=== PATIENT | male | born 1990 | race Caucasian/White ===

== ENCOUNTER 2020-04-23 19:48 | Emergency (ER) | payer SELFPAY ==
--- NOTE | 2020-04-23 20:12 | ED.PDOC ---
History of Present Illness - General Stated Complaint: hearing voices, not taking his medications Time Seen by Provider: 04/23/20 19:59 Source: patient Exam Limitations: no limitations - History of Present Illness Initial Comments: IS CURRENTLY AN MR PT FOR SCHIZOPHRENIA AND DEPRESSION. HE HAS BEEN HEARING VOICES SINCE MAR, 2019, (SINCE HE HAS BEEN "MEDITATING AND ASKING FOR DIVINE RIGHTS AND HERITAGE") THAT ARE TELLING HIM SEVERAL DISJOINTED IDEAS. THEY ARE TELLING HIM HE IS A HUMAN CREATURE CREATOR GOD AND HE IS SUPPOSED TO GO TO [facility] TO THE CAVES AND FIND CRYSTALS. THEY ARE TELLING HIM HE HAS WORMS IN HIS HEAD AND INTESTINES. HE SAYS THEY ARE NOT AUDITORY HALLUCINATIONS BUT ARE CREATURES APPROXIMATELY 2 FEET ABOVE HIM THAT ARE TALKING TO HIM AND FEEL THREATENED BY HIM AT THE SAME TIME BECAUSE HE IS BECOMING AND ALIEN HUMANOID BEING AND MIGHT HURT THEM. HE IS SCHEDULED TO GET LABS TOMORROW FOR [facility]. CURRENTLY NOT TAKING ANY MEDICATIONS. DENIES HOMICIDAL IDEATIONS. I ASKED IF HE HAS ANY PLANS TO HURT HIMSELF. HE SATES HE IS GIVING UP ON LIFE BECAUSE HE IS HEARING VOICES INCESSANTLY. HE DOES NOT HAVE A PLAN TO TAKE HIS LIFE. Timing/Duration: constant Severity: severe Associated Symptoms: anxiety, suicidal ideation Review of Systems - Review of Systems Constitutional: Denies: chills, fever EENTM: Denies: eye pain, ear pain, nose pain Respiratory: Denies: cough, short of breath Cardiology: Denies: chest pain, palpitations Gastrointestinal/Abdominal: Denies: abdominal pain, nausea Genitourinary: Denies: dysuria, frequency Musculoskeletal: Denies: back pain, neck pain Skin: Denies: lesions, rash Neurological: States: anxiety, depressed. Denies: headache, tremors, weakness Endocrine: Denies: flushing, intolerance to cold, intolerance to heat Hematologic/Lymphatic: Denies: easy bleeding, easy bruising All other Systems: Reviewed and Negative Family Medical History - Family History Father Family History: Unknown Physical Exam - Physical Exam General Appearance: Alert, Well Groomed Eyes, Ears, Nose, Throat Exam: PERRL/EOMI, normal ENT inspection, TMs normal, pharynx normal Neck: non-tender, full range of motion, supple Respiratory: lungs clear, normal breath sounds, no respiratory distress Cardiovascular/Chest: normal peripheral pulses, no murmur Peripheral Pulses: radial,right: 2+, radial,left: 2+ Gastrointestinal/Abdominal: normal bowel sounds, non tender, soft, no organomegaly, no pulsatile mass Extremities Exam: normal range of motion, no evidence of injury Neurological: alert, calm - CALMLY RELAYS TO ME WHAT THE VOICES ARE TELLING HIM. HE CONTINUES EXPLAINING NON-STOP. 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 ORDERING UDS TO ENSURE IT IS NOT DRUG-INDUCED HALLUCINATIONS (PCP, MARIJUANA, ETC) PT DOES NOT HAVE A PLAN TO END HIS LIFE BUT HE HAS FEELINGS OF GIVING UP ON LIFE, THUS WE WILL CONSULT [facility] AFTER HE IS MEDICALLY CLEARED. 04/23/20 22:26 UDS, CBC, CMP NEG. UA TRACE BLOOD BUT NO IFXN. [facility] TALKED WITH THE PATIENT. HE DOES NOT HAVE ANY PLANS TO TAKE HIS LIFE. THEY INFORMED HIM HE DOES HAVE MEDS AVAILABLE AT THE [facility] OF WHICH HE HAD BEEN UNAWARE. THE PT PROMISED [facility] HE HILL NOT HURT HIMSELF AND WILL SEE THEM IN THE CLINIC TOMORROW MORNING AT 8 AM. 04/23/20 22:29 I ALSO TALKED WITH PT AND CONFIRMED THE ABOVE. HE SAID HE WILL GO TO 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 PT IS MEDICAL-LEGALLY ALLOWED TO LEAVE AND SAFE TO LEAVE SINCE HE DOES NOT PLAN TO KILL HIMSELF, NOR DID HE THREATEN TO DO SO. Departure - Departure Clinical Impression: Psychiatric symptoms, Hearing voices Disposition: Discharge to Home or Self Care Condition: Good Departure Forms: ED Discharge - Pt. Copy, Patient Portal Self Enrollment Instructions: DI for Suicidal Ideation-Adult Diet: resume usual diet Activity: increase activity as tolerated Additional Instructions: In the morning, please bulk picker your prescriptions from [facility] and take to your [facility] appointment tomorrow. Hang in there. We care about you.
[2020-04-23 22:02] VITALS: BP 117/79; O2SAT 98
[2020-04-23 22:27] VITALS: TEMP 97.4
== END 2020-04-23 22:26 | disposition home or self-care (01) ==
LOC: ER 19:48
DX: R44.0 Auditory hallucinations (principal); F20.9 Schizophrenia, unspecified

== ENCOUNTER 2020-06-19 14:05 | Emergency (ER) | payer SELFPAY ==
--- NOTE | 2020-06-19 14:28 | ED.PDOC ---
History of Present Illness - General Chief Complaint: Behavioral / Psych Stated Complaint: worms in brain, voices, visual disturbances Time Seen by Provider: 06/19/20 14:14 - History of Present Illness Initial Comments: 30 M +pmh presents to ED c/o exacerbation of chronic auditory, visual, and tactile hallucinations. Pt believes he has worms in his head and he has been talking with "beings of higher intellect". Pt's medical case manager is already coordinating placement at [facility]. + h/o similar s'xs. He has been out of his medications for 2 weeks. Denies SI/HI, CP, SOB, n/v/d, f/c, cough, headache. Pt denies any other complaints at this time. Allergies/Adverse Reactions: Allergies NO KNOWN ALLERGY Allergy (Verified 06/19/20 14:26) Home Medications: Ambulatory Orders Depakote PO DAILY 06/19/20 Haldol PO DAILY 06/19/20 Review of Systems - Review of Systems Constitutional: Denies: chills, fever EENTM: Denies: blurred vision, ear discharge, throat pain Respiratory: Denies: cough, short of breath Cardiology: Denies: chest pain Gastrointestinal/Abdominal: Denies: abdominal pain, nausea, vomiting Genitourinary: Denies: dysuria, frequency Musculoskeletal: Denies: joint pain, muscle pain Skin: Denies: change in color, lesions, rash Neurological: States: anxiety, other - + auditory, visual, and tactile hallucinations. Denies: headache, numbness, tingling, weakness Past Medical History (General) - Patient Medical History Hx Seizures: No Hx Stroke: No Hx Dementia: No Hx Asthma: No Hx of COPD: No Hx Cardiac Disorders: No Hx Congestive Heart Failure: No Hx Pacemaker: No Hx Hypertension: No Hx Thyroid Disease: No Hx Diabetes: No Hx Gastroesophageal Reflux: No Hx Renal Disease: No Hx Cancer: No Hx of HIV: No Hx Hepatitis C: No Hx MRSA: No - Vaccination History Hx Tetanus, Diphtheria Vaccination: Yes Hx Influenza Vaccination: No Hx Pneumococcal Vaccination: No - Social History Hx Tobacco Use: Yes Hx Chewing Tobacco Use: No Hx Alcohol Use: No Hx Substance Use Treatment: No Hx Depression: Yes - MR patient Hx Physical Abuse: No Hx Emotional Abuse: No Hx Suspected Abuse: No Family Medical History - Family History Father Family History: Unknown Physical Exam - Physical Exam General Appearance: Alert, Other - Mildly distressed due to psychosis, pleasant and cooperative, Non-toxic appearing Eyes, Ears, Nose, Throat Exam: PERRL/EOMI, normal ENT inspection, TMs normal Neck: full range of motion, supple, normal inspection Respiratory: lungs clear, normal breath sounds, no respiratory distress, no accessory muscle use Cardiovascular/Chest: normal peripheral pulses, regular rate, rhythm, no edema, no gallop, no JVD, no murmur Gastrointestinal/Abdominal: normal bowel sounds, non tender, soft Extremities Exam: no evidence of injury, no edema Neurological: alert, normal mood/affect, calm, hearing care professional II-XII nml as tested, oriented x 3 Appearance: appropriate appearance, neat Behavior/Eye Contact/Speech: good eye contact - intermittent but has good eye contact with every question throughout examination Thoughts/Hallucinations: auditory hallucinations, paranoid, tactile halluc inations, visual hallucinations Skin Exam: normal color, warm/dry, other - no rash Progress - Progress Progress: Presents for acute on chronic psychosis with auditory/visual/tactile hallucinations and requesting help. I will perform imaging, labs, provide appropriate pharmacotherapy, and continue to monitor/reassess. Dispo will depend on lab results, imaging results, and overall course in ED; however, transfer to inpatient psychiatric center is expected. Pt's medical case manager is already working on placement. 15:33 Rechecked pt. NAD, VSS and improved. Pt orally rehydrating and PO tolerant. Pt is not a direct threat to himself or others but does warrant inpatient psychiatric care. I have discussed radiology results, lab results, my clinical impression, and diagnosis. I have also discussed plan for discharge from ED and transfer to inpatient psychiatric facility with plan for f/u, education. ED return precautions provided. Pt voices understanding, agrees with plan, and all questions answered. 16:46 I have consulted with Dr. Lorenzo at [facility]. He accepts pt for transfer. Joe Hamilton DO Emergency Medicine Physician [id number] - Results/Orders Results/Orders: PROVIDED CLINICAL HISTORY/REASON FOR EXAM: 06/19/20 15:33 Miscellaneous Nursing Order .ONCE Laboratory Results - last 24 hr 06/19/20 06/19/20 06/19/20 14:41 14:41 14:41 WBC 8.1 RBC 5.11 Hgb 16.1 Hct 46.1 MCV 90.2 MCH 31.5 H MCHC 35.0 RDW 12.5 Plt Count 238 MPV 7.3 L Absolute Neuts (auto) 5.70 Absolute Lymphs (auto) 1.60 Absolute Monos (auto) 0.70 Absolute Eos (auto) 0.10 Absolute Basos (auto) 0.10 Neutrophils % 70.7 Lymphocytes % 19.7 L Monocytes % 8.1 Eosinophils % 0.6 L Basophils % 0.9 Sodium 139 Potassium 4.2 Chloride 104 Carbon Dioxide 26 Anion Gap 13.2 BUN 13 Creatinine 1.40 H BUN/Creatinine Ratio 9.3 L Random Glucose 84 Serum Osmolality 276.8 Calcium 9.2 Total Bilirubin 0.6 AST 14 ALT 12 Alkaline Phosphatase 70 Serum Total Protein 7.2 Albumin 4.4 Globulin 2.8 Albumin/Globulin Ratio 1.6 Urine Color Urine Appearance Urine pH Ur Specific Sargent Urine Protein Urine Glucose (UA) Urine Ketones Urine Blood Urine Nitrite Urine Bilirubin Urine Urobilinogen Ur Leukocyte Esterase Urine RBC Urine WBC Ur Epithelial Cells Urine Bacteria Salicylates < 4.0 Urine Opiates Screen Acetaminophen < 10.0 L Urine Barbiturates Ur Phencyclidine Scrn U Amphetamin/Meth Scrn U Benzodiazepines Scrn U Cocaine Metab Screen U Cannabinoids Screen Ethyl Alcohol < 5.40 06/19/20 06/19/20 15:10 15:10 WBC RBC Hgb Hct MCV MCH MCHC RDW Plt Count MPV Absolute Neuts (auto) Absolute Lymphs (auto) Absolute Monos (auto) Absolute Eos (auto) Absolute Basos (auto) Neutrophils % Lymphocytes % Monocytes % Eosinophils % Basophils % Sodium Potassium Chloride Carbon Dioxide Anion Gap BUN Creatinine BUN/Creatinine Ratio Random Glucose Serum Osmolality Calcium Total Bilirubin AST ALT Alkaline Phosphatase Serum Total Protein Albumin Globulin Albumin/Globulin Ratio Urine Color Yellow Urine Appearance Clear Urine pH 6.5 Ur Specific Sargent 1.020 Urine Protein Negative Urine Glucose (UA) Negative Urine Ketones Negative Urine Blood Trace-lysed H Urine Nitrite Negative Urine Bilirubin Negative Urine Urobilinogen 0.2 Ur Leukocyte Esterase Negative Urine RBC 0-1 Urine WBC 0 Ur Epithelial Cells 0 Urine Bacteria 0 Salicylates Urine Opiates Screen Negative Acetaminophen Urine Barbiturates Negative Ur Phencyclidine Scrn Negative U Amphetamin/Meth Scrn Negative U Benzodiazepines Scrn Negative U Cocaine Metab Screen Negative U Cannabinoids Screen Negative Ethyl Alcohol hallucinations TECHNIQUE: Volumetric CT data of the brain was obtained without intravenous contrast. This exam was performed according to our departmental dose-optimization program, which includes automated exposure control, adjustment of the mA and/or kV according to patient size and/or use of iterative reconstruction technique. COMPARISON: None available. FINDINGS: The ventricles and sulci are normal, without hydrocephalus or significant atrophy. Septum pellucidum and third ventricle are midline. No acute infarction is evident by CT. No acute hemorrhage is present. No mass or mass effect is present. The calvaria and soft tissues are unremarkable. The visualized p aranasal sinuses are unremarkable. IMPRESSION: No acute intracranial abnormalities. Electronically signed by: Viral Aguilar MD 06/19/2020 3:02 PM CDT Vital Signs - 24 hr 06/19/20 14:27 Temperature 98.6 F Pulse Rate [ 104 H Left Radial] Respiratory 18 Rate Blood Pressure 144/90 [Left Arm] O2 Sat by Pulse 96 Oximetry Departure - Departure Clinical Impression: JUVENCIO (acute kidney injury), Acute psychosis, Visual hallucinations, Auditory hallucinations, Tactile hallucinations Time of Disposition: 15:29 Disposition: Transfer to [facility] Hospital Condition: Good Departure Forms: ED Discharge - Pt. Copy, Patient Portal Self Enrollment Instructions: DI for Psychosis, Acute Kidney Injury (DC), Schizophrenia (DC), Oral Rehydration Therapy Diet: resume usual diet Activity: increase activity as tolerated Referrals: Your, Primary Care Physician [Other] - 1-2 Weeks (Follow up in 1 week to repeat BMP and monitor renal function.) Home Medications: Ambulatory Orders Depakote PO DAILY 06/19/20 Haldol PO DAILY 06/19/20
--- NOTE | 2020-06-19 15:03 | CT ---
PROVIDED CLINICAL HISTORY/REASON FOR EXAM: hallucinations TECHNIQUE: Volumetric CT data of the brain was obtained without intravenous contrast. This exam was performed according to our departmental dose-optimization program, which includes automated exposure control, adjustment of the mA and/or kV according to patient size and/or use of iterative reconstruction technique. COMPARISON: None available. FINDINGS: The ventricles and sulci are normal, without hydrocephalus or significant atrophy. Septum pellucidum and third ventricle are midline. No acute infarction is evident by CT. No acute hemorrhage is present. No mass or mass effect is present. The calvaria and soft tissues are unremarkable. The visualized paranasal sinuses are unremarkable. IMPRESSION: No acute intracranial abnormalities. Electronically signed by: Viral Aguilar MD 06/19/2020 3:02 PM CDT
[2020-06-19 17:47] VITALS: O2SAT 97
[2020-06-19 18:10] VITALS: BP 107/65; TEMP 98.1
== END 2020-06-19 18:10 ==
LOC: ER 14:05
DX: F23 Brief psychotic disorder (principal); R44.0 Auditory hallucinations; R44.1 Visual hallucinations; R44.2 Other hallucinations; N17.9 Acute kidney failure, unspecified; F32.9 Major depressive disorder, single episode, unspecified; Z87.891 Personal history of nicotine dependence; Z79.899 Other long term (current) drug therapy